=== PATIENT | female | born 1930 | race Caucasian/White ===

== ENCOUNTER → 2017-04-06 | Outpatient (CLI) | payer OTHER | LOC: BRMIMAGING 08:43 | PROVIDERS: ATTEND Family Medicine | DX: J18.9 Pneumonia, unspecified organism (principal) | CPT/HCPCS: 71020-PO ==

== ENCOUNTER → 2017-04-21 | Outpatient (CLI) | payer OTHER | LOC: BRMIMAGING 08:43 | PROVIDERS: ATTEND Family Medicine | DX: R91.8 Other nonspecific abnormal finding of lung field (principal) | CPT/HCPCS: 71020-PO ==

== ENCOUNTER → 2018-01-13 | Outpatient (CLI) | payer OTHER | LOC: BRMIMAGING 12:53 | PROVIDERS: ATTEND Hospitalist | DX: R05 Cough (principal) | CPT/HCPCS: 71046-PO ==